=== PATIENT | male | born 1935 | race Caucasian/White ===

== ENCOUNTER 2016-11-07 05:43 | Inpatient (IN) | payer MEDICARE, BC ==
--- NOTE | 2016-10-30 19:12 | HP ---
PREOPERATIVE HISTORY AND PHYSICAL: DATE OF ADMISSION: This patient is scheduled for AA admission by Dr. Goldman on 11/07/16. DATE OF PREOPERATIVE HISTORY AND PHYSICAL EXAMINATION: , 10/25/16. ATTENDING SURGEON: Dr. Johann Goldman (dictated by Sierra Walsh NP). CHIEF COMPLAINT: Colon polyp. HISTORY OF PRESENT ILLNESS: The patient is an 81-year-old male with a history of type 2 diabetes, hypertension, and stage 3 chronic kidney disease, recently evaluated by Dr. Goldman with a new diagnosis of a tubulovillous adenoma of the colon. The patient had an episode of dizziness and fell at home at the end of July 2016, and was admitted to the intensive care unit at [facility] for 2 days. At that time, he reported a poor appetite and an unintentional weight loss of 10 pounds, and underwent CAT scan which showed an ascending colon lesion and he was referred to Gastroenterology. The patient underwent colonoscopy which revealed a 3- to 4-cm lesion at the hepatic flexure that was consistent with tubulovillous adenoma on pathology with no high-grade dysplasia. This lesion was tattooed, no other neoplastic lesions were identified, the patient did have evidence of diverticulosis. He did undergo colonoscopy in 2007, which was normal. The patient denies any bleeding per rectum. He reports diarrhea alternating with constipation. Dr. Goldman has reviewed the findings with the patient and has recommended laparoscopic colon polypectomy, possible partial colectomy, and has discussed the nature of the surgical procedure, the rationale for the procedure, the relevant risks and benefits, and today I reviewed the typical hospitalization and postoperative care and recovery. The patient has had a chance to ask questions and stated that he understands the information and is satisfied with the answers given to his questions. He will sign surgical consent on the day of surgery. PAST MEDICAL HISTORY: Significant for hypertension, type 2 diabetes, stage 3 chronic kidney disease related to diabetes, chronic generalized benign tremor. PAST SURGICAL HISTORY: Tonsillectomy at age 5. MEDICATIONS: 1. Felodipine ER 2.5 mg p.o. daily. 2. Lantus SoloStar 100 units/mL, inject 20 units subcutaneously daily at bedtime. 3. Hydrochlorothiazide 25 mg p.o. daily. 4. Altace 10 mg p.o. daily. 5. Metoprolol ER 100 mg p.o. daily. 6. Glyburide/metformin 2.5/500 mg 1 tablet b.i.d. 7. Lansoprazole 30 mg p.o. daily. ALLERGIES: No known drug allergies. FAMILY HISTORY: No known colon cancer. The patient's mother and brother had bladder cancer. The patient's father had a stroke. No known anesthesia complications, bleeding tendencies, or clotting disorders known. SOCIAL HISTORY: He is and his accompanies him to the visit today; he has never been a smoker. He states that he used to drink moderately but has not had any alcohol for several months. He denies the use of other substances. REVIEW OF SYSTEMS: Neurologic: He denies any current dizziness or syncope. Denies any history of seizures and does have a chronic generalized benign tremor. Cardiovascular: Denies any chest pain or shortness of breath. Denies any history of myocardial infarction or CVA; he is treated for hypertension by Dr. Dangelo; he was admitted to the intensive care unit, 08/08/16, at [facility] after he fell at home and struck the left side of his head at the temporal region; at that time, he was experiencing dizziness; he had a CT of the brain with no traumatic brain injury or acute intracranial process; his EKG did not show any ST changes and his troponin was 0; orthostatic hypotension was treated with IV fluids and the patient was discharged and has not had recurrence. He denies any history of deep vein thrombosis or pulmonary embolism. Respiratory: Denies any chronic shortness of breath. Denies any history of pneumonia. Denies any previous anesthesia complications. GI: In July 2016, he reported a poor appetite and an unintentional 10-pound weight loss and was worked up with a CAT scan of the abdomen and colonoscopy as described in history of present illness and found to have a tubulovillous adenoma at the hepatic flexure; he denies any current nausea or vomiting and states that his appetite is currently fair; he denies any blood per rectum and has occasional diarrhea alternating with constipation. Genitourinary: He has chronic stage 3 renal failure related to diabetes and his baseline creatinine is 1.6; he denies any dysuria. Musculoskeletal: He suffers from lower back pain. PHYSICAL EXAMINATION GENERAL SURVEY: The patient is an 81-year-old male, obese, well-developed, in no acute distress. VITAL SIGNS: Height 75 inches, weight 270 pounds, body mass index 33.7, blood pressure 140/88, pulse 76 and regular, respiratory rate 20, temperature 96. HEENT: Benign. NECK: Supple. No cervical lymphadenopathy. No carotid bruits bilaterally. LUNGS: Breath sounds bilaterally clear and equal. HEART: Regular rate and rhythm. No murmurs, rubs, or gallops appreciated. ABDOMEN: Protuberant, soft, and nontender. No obvious masses or ventral hernias but exam is limited by body habitus. No obvious organomegaly. GENITALIA AND RECTAL EXAM: Deferred. EXTREMITIES: Warm, no edema. Pulses are 2+ bilaterally. No skin ulcerations. NEUROLOGIC: Alert and oriented x3. Faint tremor in bilateral upper extremities. Motor strength is 5/5 bilaterally. Gait is steady. SKIN: Warm, dry, and intact. IMPRESSION: Tubulovillous adenoma, right colon. PLAN: AA admission to Dr. Goldman's service on 11/07/16, for laparoscopic colon polypectomy, possible partial colectomy. The patient was instructed in a bowel cleansing prep to be taken on the day before surgery consisting of clear liquids, Colyte laxative, neomycin, and Flagyl. SIERRA WALSH NP CC: Dr. Goldman, [facility]; Dr. Abhishek Dangelo* [id number]/[facility] #: [id number] [place]
[2016-11-07] MEDS ORDERED: Sodium Citrate/Citric Acid* 15 ML UDC PO ONE (06:00)
[2016-11-07] MEDS ORDERED: Buffered Lidocaine 1% SYRIN* 3 ML/SYR SYRINGE INTRADERM ONE (06:00)
[2016-11-07] MEDS ORDERED: Ertapenem* 1 GM in NS 0.9% 50 ML* 50 ML IVPB ONE (06:00)
[2016-11-07] MEDS ORDERED: Sodium Citrate/Citric Acid* 15 ML UDC ONE (06:02)
[2016-11-07] MEDS ORDERED: Heparin VIAL(*) 5000 UNITS/ML VIAL (FIVE THOUSAND) ONE (06:03)
[2016-11-07] MEDS ORDERED: Bupivacaine 0.25% EPI 200,000* 30 ML SDV ONE (07:03)
[2016-11-07] MEDS ORDERED: Propofol* 10 MG/ML 20 ML BTL IV PUSH ONE (07:36)
[2016-11-07] MEDS ORDERED: Rocuronium* 10 MG/ML VIAL ONE ×2 (07:36→09:14)
[2016-11-07] MEDS ORDERED: Lidocaine 2% PF* 5 ML VIAL ONE (07:36)
[2016-11-07] MEDS ORDERED: fentaNYL* 50 MCG/ML 2 ML VIAL (100 MCG VIAL) ONE ×4 (07:37→12:13)
[2016-11-07] MEDS ORDERED: Ondansetron INJ* 2 MG/ML VIAL IV PRN ×2 (08:42→12:39)
[2016-11-07] MEDS ORDERED: fentaNYL* 50 MCG/ML 2 ML VIAL (100 MCG VIAL) IV PRN (08:42)
[2016-11-07 11:54] LABS: Hematocrit 42 % (42-52); Hemoglobin 14.2 g/dl (14.0-18.0); Mean Corpuscular HGB Conc 34 g/dl (31-36); Mean Corpuscular Hemoglobin 33 pg (27-31); Mean Corpuscular Volume 96 fL (80-94); Mean Platelet Volume 9 um3 (7.4-10.4); Red Blood Count 4.35 10^6/ul (4.0-5.4); Red Cell Distribution Width 13 % (10.5-15); White Blood Count 10.2 10^3/ul (3.5-10.8)
[2016-11-07] MEDS ORDERED: Neostigmine Methylsulfate* 2 MG/2 ML SYRINGE ONE ×2 (12:20→12:21)
[2016-11-07] MEDS ORDERED: Glycopyrrolate IV* 0.2 MG/ML 1 ML VIAL ONE (12:21)
[2016-11-07] MEDS ORDERED: Bupivacaine 0.5% W/EPI SDV* 30 ML VIAL ONE (12:26)
--- NOTE | 2016-11-07 12:39 | SURGPN ---
Brief Operative Note - Surgery Procedures: Procedures Pre-OP Diagnoses: Colon polyp Post-op Diagnosis: same Procedure: Laparoscopic assisted Right hemicolectomy Surgeon: Jones Asst: Alba Anesthesia: GETA Dr Foster EBL: 500cc IVF: 3700cc LR Specimen: R colon Drains: Mack 200cc
[2016-11-07] MEDS ORDERED: Morphine PCA ADULT* 5 MG/ML 30 ML PCA SCH (13:00)
[2016-11-07] MEDS ORDERED: Morphine PCA ADULT* 5 MG/ML 30 ML ONE (13:21)
[2016-11-07] MEDS ORDERED: Metoprolol Tartrate IV* 1 MG/ML 5 ML VIAL IV PRN (13:23)
[2016-11-07] MEDS ORDERED: Ondansetron INJ* 2 MG/ML VIAL ONE (13:36)
[2016-11-07] MEDS ORDERED: Dextrose 50% Syringe 50 ML* 25 GM/50 ML SYRINGE IV PUSH PRN (15:26)
[2016-11-07] MEDS: Heparin VIAL(*) 5000 UNITS/ML VIAL (FIVE THOUSAND) SUBCUT SCH ×2 (15:27→21:24)
[2016-11-07] MEDS: Insulin LISPRO* 1 UNITS UNIT SUBCUT SCH (18:21)
[2016-11-07] MEDS: Metoprolol Tartrate IV* 1 MG/ML 5 ML VIAL IV SCH (18:22)
[2016-11-08] MEDS: Insulin LISPRO* 1 UNITS UNIT SUBCUT SCH ×5 (00:37→23:09)
[2016-11-08] MEDS: Metoprolol Tartrate IV* 1 MG/ML 5 ML VIAL IV SCH ×5 (00:37→23:09)
[2016-11-08] MEDS: Heparin VIAL(*) 5000 UNITS/ML VIAL (FIVE THOUSAND) SUBCUT SCH ×3 (05:14→22:55)
[2016-11-08 07:24] LABS: Hematocrit 41 % (42-52); Hemoglobin 13.8 g/dl (14.0-18.0); Mean Corpuscular HGB Conc 34 g/dl (31-36); Mean Corpuscular Hemoglobin 32 pg (27-31); Mean Corpuscular Volume 96 fL (80-94); Mean Platelet Volume 10 um3 (7.4-10.4); Red Blood Count 4.28 10^6/ul (4.0-5.4); Red Cell Distribution Width 13 % (10.5-15)
[2016-11-08 07:37] LABS: Albumin 3.2 g/dL (3.2-5.2); BUN/Creatinine Ratio 11.7 (8-20); Calcium 8.4 mg/dL (8.6-10.3); EGFR African American 56.2 (>60); EGFR Non-African American 43.7 (>60); Globulin 2.5 g/dL (2-4); Magnesium 1.8 mg/dL (1.9-2.7); Phosphorus 3.3 mg/dL (2.5-5.0); Potassium 4.2 mmol/L (3.5-5.0); Total Bilirubin 0.8 mg/dL (0.2-1.0); Total Protein 5.7 g/dL (6.4-8.9)
[2016-11-08] MEDS ORDERED: Magnesium Sulfate 2 GM IV* 2 GM/50 ML BAG IVPB ONE (07:55)
--- NOTE | 2016-11-08 12:47 | OP ---
CC: Abhishek Dangelo MD; [facility] OPERATIVE REPORT: DATE OF OPERATION: 11/07/16 DATE OF : 37 SURGEON: Johann Goldman MD MEMBER SERVICES COORDINATOR: Robbin Willis MD ANESTHESIOLOGIST: Dr. Foster. ANESTHESIA: General. PRE-OP DIAGNOSIS: Colon polyp. POST-OP DIAGNOSIS: Colon polyp. OPERATIVE PROCEDURE: Laparoscopic-assisted right hemicolectomy. ESTIMATED BLOOD LOSS: 500 cc. IV FLUIDS: 3700 cc of LR. SPECIMEN: Right colon. DRAINS: Mack catheter, 200 cc out. COUNTS: Lap pad count, instrument count correct at the end of the procedure. DESCRIPTION OF PROCEDURE: The patient was identified in the preoperative area, brought to the OR, p laced in the operating table in supine position. Preoperative antibiotics had been given. Sequenti al devices were placed on bilateral lower extremities. General anesthesia was induced. The Mack c atheter inserted and the patient's abdomen was clipped of hair and prepped and draped in standard turner rgical fashion and a time-out was performed. Folds of the umbilicus were elevated anteriorly and a Veress needle was inserted into the abdominal cavity, which was then allowed to insufflate to a pressure of 15 mmHg. The patient tolerated the in sufflation well. A 12-mm trocar was then inserted in the upper midline. A laparoscope was inserted through this. There was no evidence of injury from the trocar insertion or from the Veress needle. The Veress needle was removed. Then, a 5-mm trocar was placed at the site along with another 5-mm trocar at the suprapubic area. Attention was turned towards the omentum. This was reflected superiorly. There were adhesions to t he small bowel, these were taken down with sharp dissection as well as adhesions to the cecum, which were taken with electrocautery. This still did not allow us to fully visualize the ascending colon . There were additional adhesions of the ascending colon to the anterior abdominal wall. These wer e taken down with both sharp dissection and with blunt dissection. Once this was performed, we did identify blue dye along the ascending colon. Once the blue dye was realized, the next attempt was to mobilize the colon to evaluate. The terminal ileum was adhered to itself with multiple interloop adhesions. These were taken down w ith sharp dissection. Additionally, the appendix which appeared quite interacted was also sharply t aken out of the pelvic area. We took its blood supply to fully mobilize this. Next, the appendix mobilized medially. We were able to visualize that is the white line of Toldt an d this was taken with electrocautery and with LigaSure device up towards the hepatic flexure, retrac ting the colon medially. Again, the small bowel proved to be somewhat difficulty to be brought into the midline as it showed adhesions down into the pelvis. Some of these were taken down and again w ith scissors to release the adhesion, but overall it was difficult to visualize this portion of the small bowel. Next, we released the omentum from the transverse colon and extended this dissection with hepatic fl exure, releasing the hepatic flexure such that the colon could be mobilized medially at this side at well. The omentum was quite large and it was difficult to navigate this portion of the procedure. We were able to identify the C-loop of the duodenum and this was protected throughout, but at this point, a decision was made to convert to open and to bring the specimen out through the midline and see if w e can potentially perform a wedge resection polypectomy. The gas was released and were removed, and a midline incision connecting the subxiphoid incisi on and the periumbilical incision was made. This was deepened down through all the layers of the ab dominal cavity and omentum was eviscerated along with the transverse colon, but we were able to get most of the ascending colon through this incision, but it was held up by a small bowel loop. This incision was then extended inferiorly and we released the band that held the distal small bowel and the pelvic area. It did lead to a small serosal tear at this site but not a floor injury, but it did release the small bowel and allow as to now bring the distal small bowel and coalesce ascendi ng colon and right colon into our incision site. Previously identified inked area again was reviewed and a polyp approximately 2.5 cm was appreciated , but the decision was made to perform a formal colectomy due to both its size and also a significan t rent in the small bowel mesentery at the distal ileum. Due to this, we decided it was more jenna t to perform the formal right hemicolectomy and remove this portion of the small bowel. Points on the transverse colon were identified with good blood supply. The mesentery was taken off of this proximal transverse colon and extended towards the distal ileum. With the mesentery taken, this was done with LigaSure device. We then brought the small bowel and t ransverse colon in apposition to one another. Keeping the wound protected, colotomy and enterotomy were made and an 80 mm NIKKO stapler blue load wa s then fired to create anastomosis. A TA 90 blue stapling device was then utilized to cut both the common defect as well as the full transection of distal bowel. It was then passed off as specimen. The corners of the anastomosis were then dunked in with 3-0 silk sutures. The anastomosis was belcher nt. Another 3-0 silk suture was placed at the crotch of the staple line. Next, we attempted to close the mesenteric defect, which was large and would not really hold a stitc h very well and so therefore, we allowed this to be drop back into the abdomen. Next, the abdomen was copiously irrigated with warm saline. Hemostasis was achieved along the mesen greg. The bowel was intact without evidence of ischemia. Attention was turned towards the omentum. We noted that portion of the omentum that had been attach ed to the proximal transverse colon led to a distal large excess of this omentum and therefore was r emoved utilizing LigaSure device and there was an elongated portion. This was passed off and was in cluded with the specimen. With hemostasis achieved, the abdomen was then closed with interrupted #1 Polysorb sutures in a figu re-of-eight fashion starting inferiorly and then superiorly. The wound was then irrigated and skin edges re-approximated with skin buzz followed by sterile dressing and NG tube had been placed dur ing the time of the procedure. The liver was evaluated and was with normal contour and without lesio n. We did not open up the specimen on the back table and the patient was awoken up in the OR and tr ansferred to the PACU in stable condition. [id number]/[facility] #: [id number]
--- NOTE | 2016-11-08 16:53 | PN ---
Progress Note - Progress Note SOAP: Subjective: Pt seen and examined earlier today. Feeling ok. Positive abdo pain. No flatus. No nausea, positive burping. Objective: af vss UO good lungs clear b/l abdo: soft/ distended/ incisional tenderness. dressing intact no calf tenderness labs noted Assessment: POD1 r hemicolectomy Plan: d/c schwartz cont IVF FS with RISS OOB, Incentive spirometer DVT proph ice chips
[2016-11-08] MEDS ORDERED: Magnesium Sulfate 1 GM IV* 1 GM/100 ML BAG IV ONE (17:00)
--- NOTE | 2016-11-08 17:28 | PN ---
Subjective Date of Service: 11/08/16 Interval History: pt reports his pain is well controlled. no flatulence. No N/V/D. No fevers or chills. Denies SOB or cough. Overall feel comfortable. Objective Active Medications: Dextrose (D50w Syringe 50 Ml*) 12.5 gm IV PUSH .FOR FS < 60 - SS PRN PRN Reason: FS < 60 Heparin Sodium (Porcine) (Heparin Vial(*)) 5,000 units SUBCUT Q8HR [facility] Last Admin: 11/08/16 14:26 Dose: 5,000 units Lactated Ringer's (Lactated Ringers 1000 Ml Bag*) 1,000 mls @ 125 mls/hr IV .per rate [facility] Last Admin: 11/08/16 13:10 Dose: 125 mls/hr Morphine Sulfate (Morphine Hand Bunch Maker Adult* 5 Mg/Ml) 30 mls @ 0 mls/hr MONOGRAM MAKER .change Q24H LINO; Per Protocol PRN Reason: Protocol Last Admin: 11/07/16 13:38 Dose: 1 mls/hr Magnesium Sulfate/Dextrose (Magnesium Sulfate 1 Gm Iv*) 1 gm in 100 mls @ 200 mls/hr IV ONCE ONE Stop: 11/08/16 17:29 Insulin Human Lispro (Humalog*) 0 - 10 units SUBCUT Q6HR [facility] PRN Reason: Protocol Last Admin: 11/08/16 13:05 Dose: 1 units Metoprolol Tartrate (Lopressor Iv*) 5 mg IV Q6H [facility] Last Admin: 11/08/16 13:05 Dose: 5 mg Ondansetron HCl (Zofran Inj*) 4 mg IV Q4H PRN PRN Reason: NAUSEA/VOMITING Vital Signs 11/07/16 11/07/16 11/07/16 19:23 19:28 21:20 Temperature 98.2 F 97.6 F Pulse Rate 82 77 Respiratory 16 18 22 Rate Blood Pressure 140/74 140/66 (mmHg) O2 Sat by Pulse 98 98 98 Oximetry 11/07/16 11/08/16 11/08/16 23:54 03:47 08:08 Temperature 97.8 F 98.3 F 100.3 F Pulse Rate 86 83 80 Respiratory 18 18 18 Rate Blood Pressure 148/58 146/67 168/70 (mmHg) O2 Sat by Pulse 98 98 98 Oximetry 03/10/2611/08/16 11/08/16 08:30 12:47 16:00 Temperature 97.7 F Pulse Rate 82 Respiratory 18 18 Rate Blood Pressure 170/70 (mmHg) O2 Sat by Pulse 98 98 98 Oximetry 11/08/16 16:57 Temperature 98.2 F Pulse Rate 89 Respiratory 16 Rate Blood Pressure 132/64 (mmHg) O2 Sat by Pulse 93 Oximetry Oxygen Devices in Use Now: None Appearance: 81 yo male looks much younger than stated age - A+O x3 laying in bed in NAD. Eyes: No Scleral Icterus, PERRLA Ears/Nose/Mouth/Throat: NL Teeth, Lips, Gums Neck: NL Appearance and Movements; NL JVP Respiratory: Symmetrical Chest Expansion and Respiratory Effort, Clear to Auscultation Cardiovascular: NL Sounds; No Murmurs; No JVD, RRR, No Edema Abdominal: - - distended, obese, soft, dressing with small area of red drainage - BS noted Extremities: No Edema, No Clubbing, Cyanosis Neurological: Alert and Oriented x 3, NL Sensation, NL Gait, NL Muscle Strength and Tone Lines/Tubes/Other Access: Clean, Dry and Intact Peripheral IV Nutrition: Taking PO's Result Diagrams: 11/08/16 06:42 11/08/16 06:42 Assess/Plan/Problems-Billing Assessment: 81 yo male with PMH of DM type 2, HTN, CKD stage 3 with recent diagnoses of tubulovillous adenoma of the colon who underwent an elective laproscopic colon polypectomy and right hemicolectomy 11/07/16 - Patient Problems (1) S/P right hemicolectomy Comment: - POD #1 Disposition per surgery - Intraoperative EBL 500 ml - HH stable - No flatulence. BS noted - Pain management with Morphine MONOGRAM MAKER (2) Diabetes Comment: Controlled. Continue FSBG Q6hr with lispro SS (3) HTN (hypertension) Comment: - controlled. Continue Metoprolol IV LINO with hold parameters (4) Chronic kidney disease (CKD) Comment: - stage 3. creatinine at baseline. Renally dose medications. Continue to monitor (5) Electrolyte abnormality Comment: - replace magnesium, recheck in am (6) DVT prophylaxis Comment: HSQ (7) Full code status Status and Disposition: inpatient. Dispo per surgery. Hospital Medicine co-medical management.
--- NOTE | 2016-11-08 21:10 | CONS ---
CONSULTATION REPORT: DATE OF CONSULT: 11/07/16 PRIMARY CARE PROVIDER: Abhishek Dangelo MD. ATTENDING PHYSICIAN: Hermelinda Hays MD* (dictated by Lindy Laureano NP). PROVIDER REQUESTING CONSULT: Dr. Reji Goldman REASON FOR CONSULT: Medical management in a patient with hypertension, type 2 diabetes mellitus, stage 3 chronic kidney disease. HISTORY OF PRESENT ILLNESS: Mr. Roberson is an 81-year-old male with past medical history significant for type 2 diabetes, hypertension and stage 3 chronic kidney disease, who had recently been diagnosed with tubulovillous adenoma of the colon. The patient was initially evaluated in July 2006, when he had had some dizziness and a fall at home. He was admitted to [facility] at which time the patient had reported poor appetite and unintentional weight loss. He had a CT scan of his abdomen showing an ascending colon lesion and he was referred to Gastroenterology. The patient had a colonoscopy showing a 3 to 4-cm lesion at the hepatic flexure that was consistent with a tubulovillous adenoma. The patient after being referred to Dr. Goldman, it was recommended that the patient undergo a laparoscopic colon polypectomy with a possible partial colectomy. The patient presented to the hospital for a laparoscopic colon polypectomy with Dr. Goldman on 11/07/16. Postoperatively, the patient is doing well. The patient states that leading up to his surgery, he has been in his usual state of health. The patient denies any fever, chills, chest pain, shortness of breath. Hospitalists were asked to assist with the management of this patient during his postoperative period. PAST MEDICAL HISTORY: 1. Hypertension. 2. Diabetes mellitus type 2. 3. Chronic kidney disease stage 3. 4. Generalized benign tumor. 5. GERD. PAST SURGICAL HISTORY: Status post tonsillectomy at age 5. HOME MEDICATIONS: Include: 1. Lantus 20 units subcutaneous daily. 2. Hydrochlorothiazide 25 mg oral daily. 3. Altace 10 mg oral every evening. 4. Metoprolol ER 100 mg oral daily. 5. Glyburide/metformin 2.5/500 one tablet oral twice daily. ALLERGIES: No known drug allergies. FAMILY HISTORY: The patient denies any family history of coronary artery disease or diabetes mellitus. The patient's mother and brother had a history of bladder issues. The patient is unsure if this was bladder cancer or not. SOCIAL HISTORY: The patient is . He denies tobacco or recreational drug use. He is a former heavy drinker and now currently occasionally drinks 1 to 2 alcoholic beverages on the weekends. The patient lives with his , Lisandra Roberson, who will be his surrogate decision maker in the event that he is unable to make decisions for himself. The patient is retired from the post office. REVIEW OF SYSTEMS: I performed a 14-point review of systems. All the pertinent positives and negatives are mentioned in the history of present illness. The remaining review of systems are negative. PHYSICAL EXAM: Vital Signs: Temperature 97.3, heart rate 67, respiratory rate 16, oxygen saturation 100% on 2 L via nasal cannula, blood pressure 137/65. General Appearance: The patient is alert, appears to be in no acute distress. HEENT: Normocephalic, atraumatic. Pupils are equal and reactive to light. Extraocular eye movements are intact. Neck: Supple. Cardiovascular: Regular rate and rhythm. S1 and S2 are present. There are no murmurs, rubs, or gallops heard. Respiratory: There is no accessory muscle use and the lungs are clear to auscultation bilaterally. Abdomen: Soft, large and tender near the incision site. There are a few bowel sounds present. Extremities: There is no lower extremity edema. DP and PT pulses are 2+ and symmetric. Musculoskeletal : There is no clubbing or cyanosis noted. The patient exhibits good strength in all extremities. Skin: The patient has a dressing to his abdomen, it is clean, dry, and intact. Neurological: Cranial nerves II through XII are grossly intact. The patient moves all extremities. Psychological: The patient is calm and cooperative. DIAGNOSTIC STUDIES/LAB DATA: Labs from today show a white blood cell count of 10.3, hemoglobin 14.2, hematocrit 33, and platelet count 171. A preop EKG from 10/25/16 showed a sinus rhythm with a right bundle branch block and a rate of 61. Previous EKG from 08/08/16, shows a sinus bradycardia with a rate of 57. The patient was in normal sinus rhythm with a rate of 80s in PACU. IMPRESSION: Mr. Roberson is an 81-year-old male with past medical history significant for diabetes mellitus, chronic kidney disease stage 3, and hypertension who presented to the hospital for a laparoscopic colon polypectomy with Dr. Goldman and is now status post a laparoscopic right hemicolectomy. Hospitalists were asked to assist with the comanagement of this patient during his hospitalization. ASSESSMENT: 1. Status post laparoscopic right hemicolectomy. The patient will have an NG tube managed per General Surgery. The patient is receiving morphine via a DIRECTOR OF LEARNING for pain control. Further management will be per General Surgery. 2. Diabetes mellitus. We will hold the patient's oral medications. He will have fingersticks q.6 hours and a lispro sliding scale. 3. Chronic Kidney Disease, stage 3. Pt's creatinine appears to be at baseline. Renally dose medications and monitor renal function. 4. Hypertension. For now, we will hold the patient's oral medications and place him on metoprolol IV q.6 hours with plans to transition him back to his oral medications once he is taking oral intake. 5. Fluids, electrolytes and nutrition. N.p.o. Lactated Ringer's at 125 mL an hour. 6. Code status. Full code. 7. DVT prophylaxis. The patient will be on subcu heparin and SCDs per General Surgery. 8. Disposition. Inpatient. Disposition per General Surgery. TIME SPENT: Time for this consultation was 60 minutes and 35 minutes was spent with the patient discussing the medications, past medical history, and events leading to his arrival today and performing a physical examination. The case has been reviewed with the attending, Dr. Hays, who agrees with the plan of care. Reviewed by JAMIE DAHL 11/08/16 2141 CC: Abhishek Dangelo MD; Johann Goldman MD* [id number]/[facility] #: [id number] [facility]
[2016-11-09] MEDS ORDERED: hydrALAZINE IV* 20 MG/ML VIAL IV ONE (04:08)
[2016-11-09] MEDS ORDERED: hydrALAZINE IV* 20 MG/ML VIAL ONE (04:12)
[2016-11-09] MEDS: Metoprolol Tartrate IV* 1 MG/ML 5 ML VIAL IV SCH ×3 (05:27→18:19)
[2016-11-09] MEDS: Heparin VIAL(*) 5000 UNITS/ML VIAL (FIVE THOUSAND) SUBCUT SCH ×3 (05:27→21:54)
[2016-11-09] MEDS: Insulin LISPRO* 1 UNITS UNIT SUBCUT SCH ×4 (05:28→20:50)
[2016-11-09 07:15] LABS: Hematocrit 37 % (42-52); Hemoglobin 12.6 g/dl (14.0-18.0); Mean Corpuscular HGB Conc 34 g/dl (31-36); Mean Corpuscular Hemoglobin 33 pg (27-31); Mean Corpuscular Volume 96 fL (80-94); Mean Platelet Volume 9 um3 (7.4-10.4); Red Blood Count 3.81 10^6/ul (4.0-5.4); Red Cell Distribution Width 13 % (10.5-15); White Blood Count 7.7 10^3/ul (3.5-10.8)
[2016-11-09 07:34] LABS: BUN/Creatinine Ratio 9.9 (8-20); Calcium 8.5 mg/dL (8.6-10.3); EGFR African American 62.2 (>60); EGFR Non-African American 48.4 (>60); Magnesium 1.9 mg/dL (1.9-2.7)
--- NOTE | 2016-11-09 09:14 | PN ---
Subjective Date of Service: 11/09/16 Interval History: pt reports "i feel pretty good". Reports abdominal pain but well controlled and feels better than yesterday. No flatulence or BM. No N/V. No fever or chills Objective Active Medications: Dextrose (D50w Syringe 50 Ml*) 12.5 gm IV PUSH .FOR FS < 60 - SS PRN PRN Reason: FS < 60 Heparin Sodium (Porcine) (Heparin Vial(*)) 5,000 units SUBCUT Q8HR [facility] Last Admin: 11/09/16 05:27 Dose: 5,000 units Lactated Ringer's (Lactated Ringers 1000 Ml Bag*) 1,000 mls @ 125 mls/hr IV .per rate [facility] Last Admin: 11/09/16 03:45 Dose: 125 mls/hr Morphine Sulfate (Morphine Bobbin Winder Adult* 5 Mg/Ml) 30 mls @ 0 mls/hr HYDROELECTRIC MACHINERY MECHANIC HELPER .change Q24H LINO; Per Protocol PRN Reason: Protocol Last Admin: 11/07/16 13:38 Dose: 1 mls/hr Insulin Human Lispro (Humalog*) 0 - 10 units SUBCUT Q6HR [facility]O PRN Reason: Protocol Last Admin: 11/09/16 05:28 Dose: Not Given Metoprolol Tartrate (Lopressor Iv*) 5 mg IV Q6H [facility] Last Admin: 11/09/16 05:27 Dose: 5 mg Ondansetron HCl (Zofran Inj*) 4 mg IV Q4H PRN PRN Reason: NAUSEA/VOMITING Vital Signs 11/08/16 11/08/16 11/08/16 12:47 15:32 16:00 Temperature 97.7 F 98.2 F Pulse Rate 82 89 Respiratory 18 16 Rate Blood Pressure 170/70 132/64 (mmHg) O2 Sat by Pulse 98 93 98 Oximetry 11/08/16 11/08/16 11/08/16 16:57 17:56 19:15 Temperature 98.2 F 98.2 F Pulse Rate 89 93 82 Respiratory 16 16 Rate Blood Pressure 132/64 171/70 152/67 (mmHg) O2 Sat by Pulse 93 96 Oximetry 11/08/16 11/08/16 11/09/16 20:01 23:00 03:40 Temperature 97.9 F 98.1 F Pulse Rate 88 93 Respiratory 18 18 16 Rate Blood Pressure 182/67 174/66 (mmHg) O2 Sat by Pulse 96 98 98 Oximetry 11/09/16 11/09/16 11/09/16 05:00 05:48 07:00 Temperature Pulse Rate Respiratory 24 Rate Blood Pressure 172/66 156/63 (mmHg) O2 Sat by Pulse 96 Oximetry 11/09/16 11/09/16 07:31 08:42 Temperature 98.1 F Pulse Rate 82 Respiratory 20 Rate Blood Pressure 171/69 (mmHg) O2 Sat by Pulse 98 96 Oximetry Oxygen Devices in Use Now: None Appearance: elderly male sitting up in bed in NAD. A+O x3 Eyes: No Scleral Icterus, PERRLA Ears/Nose/Mouth/Throat: NL Teeth, Lips, Gums, Mucous Membranes Moist Neck: NL Appearance and Movements; NL JVP Respiratory: Symmetrical Chest Expansion and Respiratory Effort, Clear to Auscultation Cardiovascular: NL Sounds; No Murmurs; No JVD, RRR, No Edema Abdominal: - - obese, distended, soft, mild tenderness around laproscopic incision areas - noted BS x 4. small area of dried blood on dressing. Extremities: No Edema, No Clubbing, Cyanosis Skin: - - warm, pink dry Neurological: Alert and Oriented x 3, NL Muscle Strength and Tone Lines/Tubes/Other Access: Clean, Dry and Intact Peripheral IV Nutrition: Taking PO's Result Diagrams: 11/09/16 06:26 11/09/16 06:24 Assess/Plan/Problems-Billing Assessment: 81 yo male with PMH of DM type 2, HTN, CKD stage 3 with recent diagnoses of tubulovillous adenoma of the colon who underwent an elective laproscopic colon polypectomy and right hemicolectomy 11/07/16 - Patient Problems (1) S/P right hemicolectomy Comment: - POD #2 Disposition per surgery - Intraoperative EBL 500 ml - HH stable - No flatulence. BS noted - Pain management, well controlled with Morphine HYDROELECTRIC MACHINERY MECHANIC HELPER, tolerating well w/o any sedation - Decrease IVFs to 100 ml/hr - Encourage IS and ambulation (2) Diabetes Comment: Controlled. Continue FSBG Q6hr with lispro SS (3) HTN (hypertension) Comment: - controlled. Continue Metoprolol IV LINO with hold parameters - hydralyzine prn for SBP > 170 (4) Chronic kidney disease (CKD) Comment: - stage 3. creatinine at baseline. Renally dose medications. Continue to monitor (5) Electrolyte abnormality Comment: - resolved. recheck in am (6) DVT prophylaxis Comment: HSQ (7) Full code status Status and Disposition: inpatient. Dispo per surgery. Hospital Medicine co-medical management.
[2016-11-09] MEDS: hydrALAZINE IV* 20 MG/ML VIAL IV SLOW PU PRN ×2 (10:03→23:38)
--- NOTE | 2016-11-09 10:07 | PN ---
Progress Note - Progress Note SOAP: Subjective: Pt seen and examined today. Feeling better. Less abdo pain. No flatus or BM. No nausea. Positive appetite. Objective: af vss; O2sat 90 on RA lungs clear b/l abdo: soft/ distended/ incisional tenderness. dressing removed. MInimal dull erythema at midportion hypoactive BS no calf tenderness labs noted Pathology reviewed with pt Assessment: POD2 R hemicolectomy Plan: change IVF FS with RISS OOB, Incentive spirometer DVT proph clear diet
[2016-11-09] MEDS ORDERED: Insulin LISPRO* 1 UNITS UNIT SUBCUT SCH ×2 (11:30→14:00)
[2016-11-10] MEDS: Metoprolol Tartrate IV* 1 MG/ML 5 ML VIAL IV SCH ×3 (00:11→12:31)
[2016-11-10] MEDS ORDERED: amLODIPine TAB* 5 MG ONE (02:19)
[2016-11-10] MEDS: amLODIPine TAB* 5 MG PO SCH ×2 (02:23→08:03)
[2016-11-10] MEDS ORDERED: Furosemide IV* 10 MG/ML 10 ML VIAL (100 MG) IV ONE (04:03)
[2016-11-10] MEDS ORDERED: NS 0.9% 1000 ML* 1,000 ML IV SCH (04:15)
[2016-11-10] MEDS ORDERED: Pantoprazole IV* 40 MG IV ONE (05:00)
[2016-11-10] MEDS ORDERED: Furosemide IV* 10 MG/ML 2 ML VIAL (20 MG) IV ONE (05:00)
[2016-11-10] MEDS: Heparin VIAL(*) 5000 UNITS/ML VIAL (FIVE THOUSAND) SUBCUT SCH ×3 (05:35→21:46)
[2016-11-10 07:13] LABS: Hematocrit 41 % (42-52); Hemoglobin 14.1 g/dl (14.0-18.0); Mean Corpuscular HGB Conc 34 g/dl (31-36); Mean Corpuscular Hemoglobin 33 pg (27-31); Mean Corpuscular Volume 96 fL (80-94); Mean Platelet Volume 9 um3 (7.4-10.4); Red Cell Distribution Width 13 % (10.5-15); White Blood Count 8.4 10^3/ul (3.5-10.8)
[2016-11-10 07:30] LABS: BUN/Creatinine Ratio 9.5 (8-20); Calcium 8.7 mg/dL (8.6-10.3); EGFR African American 64.3 (>60); Magnesium 1.8 mg/dL (1.9-2.7); Phosphorus 3.1 mg/dL (2.5-5.0); Potassium 4.2 mmol/L (3.5-5.0)
[2016-11-10] MEDS ORDERED: Morphine INJ* 2 MG/ML 1 ML SYRINGE IV PRN (08:10)
--- NOTE | 2016-11-10 08:10 | PN ---
Progress Note - Progress Note SOAP: Subjective: Pt seen and examined today. Overnight events noted. Feeling bloated, but not nauseous. Less abdo pain, amd continues walking. No flatus, but pos BM this am. Thirsty. Received Lasix overnight Objective: af vss; O2sat 90 on RA lungs clear b/l abdo: soft/ distended/ incisional tenderness. minimal erythema unchanged. normoactive BS no calf tenderness labs noted Assessment: POD3 R hemicolectomy, awaiting bowel function Plan: change IVF OOB, Incentive spirometer DVT proph clear diet d/c warehouse consultant
[2016-11-10] MEDS ORDERED: oxyCODONE/Acetamin 5/325 MG* TAB PO PRN (08:11)
[2016-11-10] MEDS ORDERED: Ramipril CAP* 10 MG PO SCH (09:00)
[2016-11-10] MEDS ORDERED: D5W 1/2 NS 1000 ML BAG* 1,000 ML IV SCH (09:00)
[2016-11-10] MEDS: Metoprolol Succinate XL TAB* 100 MG PO SCH (09:13)
[2016-11-10] MEDS: Hydrochlorothiazide TAB* 25 MG PO SCH (09:17)
[2016-11-10] MEDS: Insulin LISPRO* 1 UNITS UNIT SUBCUT SCH ×4 (09:17→21:46)
--- NOTE | 2016-11-10 16:40 | PN ---
Subjective Date of Service: 11/10/16 Interval History: Patient seen and examined at bedside at 1230. He reports recently being up OOB and walking. He denies CP, SOB, n/v. He reports adequate pain control for abdominal pain. Denies leg pain, fever/chills. No acute concerns. Family History: Unchanged from Admission Social History: Unchanged from Admission Past Medical History: Unchanged from Admission Objective Active Medications: Amlodipine Besylate (Norvasc Tab*) 5 mg PO DAILY [facility] Last Admin: 11/10/16 08:03 Dose: Not Given Dextrose (D50w Syringe 50 Ml*) 12.5 gm IV PUSH .FOR FS < 60 - SS PRN PRN Reason: FS < 60 Heparin Sodium (Porcine) (Heparin Vial(*)) 5,000 units SUBCUT Q8HR [facility] Last Admin: 11/10/16 14:21 Dose: 5,000 units Hydralazine HCl (Apresoline Iv*) 5 mg IV SLOW PU Q6H PRN PRN Reason: BLOOD PRESSURE Last Admin: 11/09/16 23:38 Dose: 5 mg Hydrochlorothiazide (Hydrodiuril Tab*) 25 mg PO QAM [facility] Last Admin: 11/10/16 09:17 Dose: 25 mg Dextrose/Sodium Chloride (D5w 1/2 Ns 1000 Ml Bag*) 1,000 mls @ 50 mls/hr IV PER RATE [facility] Last Admin: 11/10/16 11:37 Dose: 50 mls/hr Insulin Human Lispro (Humalog*) 0 - 10 units SUBCUT ACHS [facility] PRN Reason: Protocol Last Admin: 11/10/16 12:29 Dose: Not Given Metoprolol Succinate (Toprol Xl Tab*) 100 mg PO QAM [facility] Last Admin: 11/10/16 09:13 Dose: 100 mg Metoprolol Tartrate (Lopressor Iv*) 5 mg IV Q6H [facility] Last Admin: 11/10/16 12:31 Dose: 5 mg Morphine Sulfate (Morphine Inj (Syringe)*) 2 mg IV Q2H PRN PRN Reason: PAIN Ondansetron HCl (Zofran Inj*) 4 mg IV Q4H PRN PRN Reason: NAUSEA/VOMITING Last Admin: 11/10/16 05:04 Dose: 4 mg Oxycodone/Acetaminophen (Percocet 5/325 Tab*) 1 tab PO Q4H PRN PRN Reason: PAIN Ramipril (Altace Cap*) 10 mg PO QAM [facility] Last Admin: 11/10/16 09:18 Dose: 10 mg Vital Signs 11/09/16 11/09/16 11/09/16 18:00 18:10 18:23 Temperature Pulse Rate 95 95 Respiratory 18 18 Rate Blood Pressure 165/62 165/62 (mmHg) O2 Sat by Pulse 93 95 94 Oximetry 11/09/16 11/09/16 11/09/16 19:08 19:09 19:19 Temperature Pulse Rate Respiratory 17 17 17 Rate Blood Pressure (mmHg) O2 Sat by Pulse Oximetry 11/09/16 11/09/16 11/09/16 19:36 20:00 22:00 Temperature 99.0 F Pulse Rate 77 Respiratory 20 17 17 Rate Blood Pressure 164/73 (mmHg) O2 Sat by Pulse 98 94 93 Oximetry 11/09/16 11/10/16 11/10/16 23:30 00:00 00:05 Temperature 97.5 F Pulse Rate 91 92 Respiratory 16 16 Rate Blood Pressure 193/80 191/74 (mmHg) O2 Sat by Pulse 99 93 Oximetry 11/10/16 11/10/16 11/10/16 01:59 02:00 02:08 Temperature Pulse Rate 88 Respiratory 17 Rate Blood Pressure 184/170 182/79 (mmHg) O2 Sat by Pulse 94 Oximetry 11/10/16 11/10/16 11/10/16 03:54 04:00 04:47 Temperature 98.7 F Pulse Rate 90 Respiratory 18 18 Rate Blood Pressure 192/80 (mmHg) O2 Sat by Pulse 97 96 Oximetry 11/10/16 11/10/16 11/10/16 05:22 05:27 06:00 Temperature Pulse Rate 89 Respiratory 17 Rate Blood Pressure 160/72 (mmHg) O2 Sat by Pulse 96 93 Oximetry 11/10/16 11/10/16 11/10/16 07:29 11:43 15:09 Temperature 97.5 F 97.8 F 97.5 F Pulse Rate 91 84 81 Respiratory 20 18 16 Rate Blood Pressure 155/74 118/68 115/53 (mmHg) O2 Sat by Pulse 98 98 91 Oximetry Oxygen Devices in Use Now: None Appearance: Older male patient, sitting up in bed, in NAD Eyes: PERRLA Ears/Nose/Mouth/Throat: Clear Oropharnyx, Mucous Membranes Moist Neck: NL Appearance and Movements; NL JVP Respiratory: Symmetrical Chest Expansion and Respiratory Effort, Clear to Auscultation Cardiovascular: NL Sounds; No Murmurs; No JVD, RRR Abdominal: - - protuberant, distended, soft, midline incision with buzz - well approximated, small incision to LLQ with 2 buzz. BS x 4 Extremities: No Edema, No Clubbing, Cyanosis Skin: No Rash or Ulcers Neurological: Alert and Oriented x 3, NL Muscle Strength and Tone Lines/Tubes/Other Access: Clean, Dry and Intact Peripheral IV Nutrition: Taking PO's - sips of clears Result Diagrams: 11/10/16 07:01 11/10/16 07:01 Assess/Plan/Problems-Billing Assessment: 81 yo male with PMH of DM type 2, HTN, CKD stage 3 with recent diagnoses of tubulovillous adenoma of the colon who underwent an elective laproscopic colon polypectomy and right hemicolectomy 11/07/16. - Patient Problems (1) S/P right hemicolectomy Code(s): Z90.49 - ACQUIRED ABSENCE OF OTHER SPECIFIED PARTS OF DIGESTIVE TRACT Comment: POD #3 Disposition per surgery Intraoperative EBL 500 ml. HH stable. No flatulence. BS noted. Pain management, well controlled with morphine. MANAGER GAME discontinued, now on PRN dosing. Encourage IS and ambulation (2) Diabetes Code(s): E11.9 - TYPE 2 DIABETES MELLITUS WITHOUT COMPLICATIONS Comment: Controlled. Continue FSBG ACHS with lispro SS (3) HTN (hypertension) Code(s): I10 - ESSENTIAL (PRIMARY) HYPERTENSION Comment: Controlled. Continue metoprolol and ramipril. Continue hydralazine prn for SBP > 170 (4) Chronic kidney disease (CKD) Code(s): N18.9 - CHRONIC KIDNEY DISEASE, UNSPECIFIED Comment: Stage 3. Creatinine at baseline. Renally dose medications. Continue to monitor. (5) DVT prophylaxis Code(s): REG3971 - Comment: SQ heparin (6) Full code status Code(s): Z78.9 - OTHER SPECIFIED HEALTH STATUS Status and Disposition: Inpatient. Dispo per surgery. Hospital Medicine co-medical management.
[2016-11-10] MEDS ORDERED: Magnesium Sulfate 2 GM IV* 2 GM/50 ML BAG IVPB ONE (16:46)
[2016-11-10] MEDS ORDERED: Magnesium Sulfate 2 GM IV* 2 GM/50 ML BAG ONE (16:58)
[2016-11-10] MEDS: D5W 1/2 NS 1000 ML BAG* 1,000 ML IV SCH (22:55)
[2016-11-10] MEDS ORDERED: Diltiazem TAB* 30 MG ONE (23:29)
[2016-11-10] MEDS: Diltiazem TAB* 30 MG PO SCH (23:32)
[2016-11-10] MEDS: Aspirin TAB* 325 MG PO SCH (23:56)
[2016-11-11] MEDS: D5W 1/2 NS 1000 ML BAG* 1,000 ML IV SCH ×2 (04:53→17:59)
[2016-11-11] MEDS: Heparin VIAL(*) 5000 UNITS/ML VIAL (FIVE THOUSAND) SUBCUT SCH ×3 (05:37→20:59)
[2016-11-11] MEDS: Diltiazem TAB* 30 MG PO SCH ×3 (05:37→13:23)
[2016-11-11 06:52] LABS: Hematocrit 39 % (42-52); Hemoglobin 13.4 g/dl (14.0-18.0); Mean Corpuscular HGB Conc 34 g/dl (31-36); Mean Corpuscular Hemoglobin 33 pg (27-31); Mean Corpuscular Volume 96 fL (80-94); Mean Platelet Volume 8 um3 (7.4-10.4); Red Blood Count 4.08 10^6/ul (4.0-5.4); Red Cell Distribution Width 13 % (10.5-15); White Blood Count 7.4 10^3/ul (3.5-10.8)
[2016-11-11 07:04] LABS: BUN/Creatinine Ratio 9.7 (8-20); Calcium 8.3 mg/dL (8.6-10.3); EGFR African American 45.5 (>60); EGFR Non-African American 35.4 (>60); Potassium 3.9 mmol/L (3.5-5.0)
[2016-11-11] MEDS: Hydrochlorothiazide TAB* 25 MG PO SCH (08:43)
[2016-11-11] MEDS: Insulin LISPRO* 1 UNITS UNIT SUBCUT SCH ×4 (09:01→20:59)
[2016-11-11] MEDS: Metoprolol Succinate XL TAB* 100 MG PO SCH (09:01)
[2016-11-11] MEDS: Aspirin TAB* 325 MG PO SCH (09:01)
--- NOTE | 2016-11-11 09:01 | PN ---
Subjective Date of Service: 11/11/16 Interval History: Patient seen and examined at bedside. He is sleeping but arouses to verbal stimuli. He reports that he is tolerating clear liquids. Denies fever/chills, CP , SOB, abd pain, n/v. Patient went into atrial fib last evening; he denies any prior knowledge of this condition. Patient was asymptomatic through the event and started on diltiazem. Patient also noted that he is not urinating as much here; he states he usually has to go every 2-3 hours at home. Family History: Unchanged from Admission Social History: Unchanged from Admission Past Medical History: Unchanged from Admission Objective Active Medications: Aspirin (Aspirin Tab*) 325 mg PO DAILY [facility] Last Admin: 11/10/16 23:56 Dose: 325 mg Dextrose (D50w Syringe 50 Ml*) 12.5 gm IV PUSH .FOR FS < 60 - SS PRN PRN Reason: FS < 60 Diltiazem HCl (Cardizem Tab*) 30 mg PO Q6HR [facility] Last Admin: 11/11/16 05:37 Dose: 30 mg Heparin Sodium (Porcine) (Heparin Vial(*)) 5,000 units SUBCUT Q8HR [facility] Last Admin: 11/11/16 05:37 Dose: 5,000 units Hydralazine HCl (Apresoline Iv*) 5 mg IV SLOW PU Q6H PRN PRN Reason: BLOOD PRESSURE Last Admin: 11/09/16 23:38 Dose: 5 mg Hydrochlorothiazide (Hydrodiuril Tab*) 25 mg PO QAM [facility] Last Admin: 11/11/16 08:43 Dose: Not Given Dextrose/Sodium Chloride (D5w 1/2 Ns 1000 Ml Bag*) 1,000 mls @ 100 mls/hr IV PER RATE [facility] Last Admin: 11/11/16 04:53 Dose: 100 mls/hr Insulin Human Lispro (Humalog*) 0 - 10 units SUBCUT ACHS [facility] PRN Reason: Protocol Last Admin: 11/10/16 21:46 Dose: 1 unit Metoprolol Succinate (Toprol Xl Tab*) 100 mg PO QAM [facility] Last Admin: 11/10/16 09:13 Dose: 100 mg Morphine Sulfate (Morphine Inj (Syringe)*) 2 mg IV Q2H PRN PRN Reason: PAIN Ondansetron HCl (Zofran Inj*) 4 mg IV Q4H PRN PRN Reason: NAUSEA/VOMITING Last Admin: 11/10/16 05:04 Dose: 4 mg Oxycodone/Acetaminophen (Percocet 5/325 Tab*) 1 tab PO Q4H PRN PRN Reason: PAIN Last Admin: 11/10/16 23:56 Dose: 1 tab Ramipril (Altace Cap*) 10 mg PO QPM ON [facility] OF [facility] Vital Signs 11/10/16 11/10/16 11/10/16 11:43 15:09 19:26 Temperature 97.8 F 97.5 F Pulse Rate 84 81 Respiratory 18 16 20 Rate Blood Pressure 118/68 115/53 (mmHg) O2 Sat by Pulse 98 91 Oximetry 11/10/16 11/10/16 11/10/16 19:44 20:14 22:37 Temperature 97.2 F 97.3 F Pulse Rate 135 72 120 Respiratory 21 18 Rate Blood Pressure 131/62 137/63 (mmHg) O2 Sat by Pulse 95 97 Oximetry 11/10/16 11/11/16 11/11/16 23:56 01:11 01:53 Temperature Pulse Rate 80 Respiratory 18 18 18 Rate Blood Pressure 138/67 (mmHg) O2 Sat by Pulse 97 Oximetry 11/11/16 11/11/16 11/11/16 03:20 05:42 07:12 Temperature 98.1 F Pulse Rate 107 97 Respiratory 18 18 Rate Blood Pressure 143/61 (mmHg) O2 Sat by Pulse 97 99 97 Oximetry 11/11/16 07:23 Temperature 97.3 F Pulse Rate 89 Respiratory 16 Rate Blood Pressure 112/55 (mmHg) O2 Sat by Pulse 94 Oximetry Oxygen Devices in Use Now: None Appearance: Older male patient, sitting up in bed, in NAD Eyes: PERRLA Ears/Nose/Mouth/Throat: Clear Oropharnyx, Mucous Membranes Moist Neck: NL Appearance and Movements; NL JVP Respiratory: Symmetrical Chest Expansion and Respiratory Effort, Clear to Auscultation Cardiovascular: NL Sounds; No Murmurs; No JVD, RRR Abdominal: - - protuberant, distended, soft, BS x 4. buzz to midline incision and small lap site. Extremities: No Edema, No Clubbing, Cyanosis Skin: No Rash or Ulcers Neurological: Alert and Oriented x 3 Lines/Tubes/Other Access: Clean, Dry and Intact Peripheral IV Nutrition: Taking PO's - clears Result Diagrams: 11/11/16 06:44 11/11/16 06:44 Assess/Plan/Problems-Billing Assessment: 81 yo male with PMH of DM type 2, HTN, CKD stage 3 with recent diagnoses of tubulovillous adenoma of the colon who underwent an elective laproscopic colon polypectomy and right hemicolectomy 11/07/16. - Patient Problems (1) Atrial fibrillation Code(s): I48.91 - UNSPECIFIED ATRIAL FIBRILLATION Comment: Patient noted to be in atrial fibrillation overnight, now appears to be in SR. Will transfer to telemetry for further monitoring, continue diltiazem and metoprolol. Unclear if this is transient or if patient has chronically been in and out of atrial fib. Will require anticoagulation (if okay with surgery) if patient noted to have recurrent afib. If no further episodes, patient can follow as an outpatient with PCP and have outpatient cardiology referral. Obtain echocardiogram. (2) S/P right hemicolectomy Code(s): Z90.49 - ACQUIRED ABSENCE OF OTHER SPECIFIED PARTS OF DIGESTIVE TRACT Comment: POD #4 Disposition per surgery Intraoperative EBL 500 ml. HH stable. No flatulence. BS noted. Patient reports BM x 2. Pain management, well controlled with morphine. Encourage IS and ambulation (3) Diabetes Code(s): E11.9 - TYPE 2 DIABETES MELLITUS WITHOUT COMPLICATIONS Comment: Controlled. Continue FSBG ACHS with lispro SS (4) HTN (hypertension) Code(s): I10 - ESSENTIAL (PRIMARY) HYPERTENSION Comment: Normotensive. Continue metoprolol and ramipril with hold parameters Now also on diltiazem for episode of atrial fib last evening. Hold HCTZ, as patient appears to be somewhat dry. Continue hydralazine prn for SBP > 170 (5) Chronic kidney disease (CKD) Code(s): N18.9 - CHRONIC KIDNEY DISEASE, UNSPECIFIED Comment: Stage 3. Creatinine mildly elevated. Suspect patient is dry. Continue IVF, hold HCTZ today. Renally dose medications. Continue to monitor. (6) DVT prophylaxis Code(s): [id number] - Comment: SQ heparin (7) Full code status Code(s): Z78.9 - OTHER SPECIFIED HEALTH STATUS Status and Disposition: Inpatient. Dispo per surgery. Transfer to telemetry for further monitoring of afib. Hospital Medicine co-medical management.
[2016-11-11] MEDS ORDERED: NS 0.9% 500 ML BAG* 500 ML IV SCH (12:00)
--- NOTE | 2016-11-11 12:08 | ECHO ---
Patient: MARYBEL MARIN [facility] Rec#: [id number] : 1935 Date: 11/11/2016 Age: 81y Weight: kg / NaN lbs Sex: M Room#: 448 Admit Date#: 11/07/2016 Type: Inpatient Referring: Rona Camacho Reading: Yuval Hopkins MD Submarine Worker: Ginger Marie RDCS CC: Abhishek Dangelo MD Transthoracic Echocardiogram Indication: A-fib BP: 112/55 HR: 86 Rhythm: NSR Findings History: S/P right hemicolectomy 11/07/2016,DM,HTN,CKD stageIII,GERD. Technical Comments: The study is technically limited due to patient body habitus. Completed at 1117. Left Ventricle: The left ventricular chamber size is normal. Mild concentric left ventricular hypertrophy is observed. Global left ventricular wall motion and contractility are within normal limits. There is normal left ventricular systolic function. The estimated ejection fraction is 55-60%. The assessment of diastolic function is non-diagnostic. Left Atrium: The left atrial chamber size is normal. Right Ventricle: The right ventricular cavity size is normal. The right ventricular global systolic function is normal. Right Atrium: The right atrial cavity size is normal. Aortic Valve: The aortic valve is trileaflet. The aortic valve leaflets are mildly thickened. There is no evidence of aortic regurgitation. There is no evidence of aortic stenosis. Mitral Valve: The mitral valve leaflets are mildly thickened. There is a trace of mitral regurgitation. Tricuspid Valve: The tricuspid valve leaflets are normal. There is no evidence of tricuspid valve regurgitation. Pulmonic Valve: The pulmonic valve appears normal. There is a trace pulmonic regurgitation. There is no pulmonic stenosis. Pericardium: There is no significant pericardial effusion. A pericardial fat pad is visualized. Aorta: There is no dilatation of the ascending aorta. There is no dilatation of the aortic arch. There is no dilation of the aortic root. Pulmonary Artery: The main pulmonary artery is not well visualized. Venous: The venous system is not well visualized. Conclusions There is normal left ventricular systolic function. The estimated ejection fraction is 55-60%. Global left ventricular wall motion and contractility are within normal limits. Mild concentric left ventricular hypertrophy is observed. Normal cardiac chamber sizes. Functionally benign heart valves. There is no prior echocardiogram available to compare with at this time. Measurements Name Value Normal Range RVDdMajor (2D) 3.3 cm (2.2 - 4.4) RAd ISD 4CH 4.9 cm (3.4 - 4.9) RA (A4C)W 3.3 cm (2.9 - 4.6) IVSd (2D) 1.2 cm (0.6 - 1) LVPWd (2D) 1.2 cm (0.6 - 1) LVIDd (2D) 3.6 cm (3.6 - 5.4) LVIDs (2D) 2.6 cm - LV FS (2D) 28 % (25 - 45) Aortic Annulus 1.8 cm (1.4 - 2.6) Ao root diameter (2D) 3.1 cm (2.1 - 3.5) Ascending Ao 3.4 cm (2.1 - 3.4) Aortic arch 3.3 cm (1.8 - 3.4) Descending Ao 0.6 cm - LA dimension (AP) 2D 3.8 cm (2.3 - 3.8) LAd ISD 4CH 5.2 cm (2.9 - 5.3) LA ISD 4CH W 3.9 cm (2.5 - 4.5) Name Value Normal Range LA ESV SP 4CH (A/L) 42 ml - LA ESV SP 2CH (A/L) 45 ml - LA ESV BP (A/L) 45 ml - LA ESV BP (A/L) index 18.27 ml/m2 - LA ESV SP 4CH (MOD) 40 ml - LA ESV SP 2CH (MOD) 43 ml - Name Value Normal Range MV E-wave Vmax 0.7 m/sec - MV deceleration time 307 msec - MV A-wave Vmax 0.7 m/sec - MV E:A ratio 0.99 ratio - LV septal e' Vmax 0.08 m/sec - LV lateral e' Vmax 0.09 m/sec - LV E:e' septal ratio 8.75 ratio - LV E:e' lateral ratio 7.78 ratio - Name Value Normal Range AV Vmax 1.4 m/sec - AV VTI 27 cm - AV peak gradient 8.09 mmHg - AV mean gradient 3.47 mmHg - LVOT Vmax 1.1 m/sec - LVOT VTI 17.3 cm - LVOT peak gradient 4.55 mmHg - LVOT mean gradient 1.98 mmHg - Name Value Normal Range PV Vmax 1 m/sec - PV peak gradient 3.79 mmHg -
[2016-11-11] MEDS: Ramipril CAP* 10 MG PO SCH (17:34)
[2016-11-12] MEDS: Heparin VIAL(*) 5000 UNITS/ML VIAL (FIVE THOUSAND) SUBCUT SCH ×3 (05:16→21:13)
[2016-11-12] MEDS: D5W 1/2 NS 1000 ML BAG* 1,000 ML IV SCH ×3 (05:28→21:15)
[2016-11-12 05:29] LABS: Hematocrit 38 % (42-52); Hemoglobin 12.8 g/dl (14.0-18.0); Mean Corpuscular HGB Conc 34 g/dl (31-36); Mean Corpuscular Hemoglobin 33 pg (27-31); Mean Corpuscular Volume 96 fL (80-94); Mean Platelet Volume 8 um3 (7.4-10.4); Red Blood Count 3.93 10^6/ul (4.0-5.4); Red Cell Distribution Width 13 % (10.5-15); White Blood Count 5.9 10^3/ul (3.5-10.8)
[2016-11-12 05:51] LABS: BUN/Creatinine Ratio 10.2 (8-20); Calcium 8.3 mg/dL (8.6-10.3); EGFR African American 59.3 (>60); EGFR Non-African American 46.1 (>60); Potassium 3.5 mmol/L (3.5-5.0)
[2016-11-12] MEDS: Aspirin TAB* 325 MG PO SCH (08:20)
[2016-11-12] MEDS: Metoprolol Succinate XL TAB* 100 MG PO SCH (08:20)
[2016-11-12] MEDS: Insulin LISPRO* 1 UNITS UNIT SUBCUT SCH ×4 (08:20→21:11)
--- NOTE | 2016-11-12 08:38 | PN ---
Progress Note - Progress Note SOAP: Subjective: Pt seen and examined today. Weekend events noted. No nausea, positive flatus, BM. Denies abdo pain. Objective: af vss; lungs clear b/l abdo: soft/ distended/ NT. No erythema hyperactive BS no calf tenderness labs noted Assessment: POD5 R hemicolectomy; afib and transferred to tele Plan: decrease IVF OOB, Incentive spirometer DVT proph advance diet
[2016-11-12] MEDS: Pantoprazole IV* 40 MG IV SCH (10:53)
--- NOTE | 2016-11-12 12:31 | PN ---
Subjective Date of Service: 11/12/16 Interval History: Patient seen and examined at bedside. Mr. Roberson reports passing flatus and having BM and tolerating solid food. He feels he is progressing. He denies fever /chills, dizziness, palpitations, CP, SOB, n/v. No further episodes of afib noted on telemetry. Telemetry: Sinus Rhythm 80s Family History: Unchanged from Admission Social History: Unchanged from Admission Past Medical History: Unchanged from Admission Objective Active Medications: Aspirin (Aspirin Tab*) 325 mg PO DAILY [facility] Last Admin: 11/12/16 08:20 Dose: 325 mg Dextrose (D50w Syringe 50 Ml*) 12.5 gm IV PUSH .FOR FS < 60 - SS PRN PRN Reason: FS < 60 Heparin Sodium (Porcine) (Heparin Vial(*)) 5,000 units SUBCUT Q8HR [facility] Last Admin: 11/12/16 05:16 Dose: 5,000 units Hydralazine HCl (Apresoline Iv*) 5 mg IV SLOW PU Q6H PRN PRN Reason: BLOOD PRESSURE Last Admin: 11/09/16 23:38 Dose: 5 mg Dextrose/Sodium Chloride (D5w 1/2 Ns 1000 Ml Bag*) 1,000 mls @ 50 mls/hr IV PER RATE [facility] Insulin Human Lispro (Humalog*) 0 - 10 units SUBCUT ACHS [facility] PRN Reason: Protocol Last Admin: 11/12/16 08:20 Dose: 1 unit Metoprolol Succinate (Toprol Xl Tab*) 100 mg PO QAM [facility] Last Admin: 11/12/16 08:20 Dose: 100 mg Morphine Sulfate (Morphine Inj (Syringe)*) 2 mg IV Q2H PRN PRN Reason: PAIN Ondansetron HCl (Zofran Inj*) 4 mg IV Q4H PRN PRN Reason: NAUSEA/VOMITING Last Admin: 11/10/16 05:04 Dose: 4 mg Oxycodone/Acetaminophen (Percocet 5/325 Tab*) 1 tab PO Q4H PRN PRN Reason: PAIN Last Admin: 11/10/16 23:56 Dose: 1 tab Pantoprazole Sodium (Protonix Iv*) 40 mg IV Q24H [facility] Last Admin: 11/12/16 10:53 Dose: 40 mg Ramipril (Altace Cap*) 10 mg PO QPM [facility] Last Admin: 11/11/16 17:34 Dose: 10 mg Vital Signs 11/11/16 11/11/16 11/11/16 15:23 16:00 19:28 Temperature 97.3 F 97.8 F Pulse Rate 71 71 Respiratory 17 18 Rate Blood Pressure 138/67 144/62 (mmHg) O2 Sat by Pulse 97 97 97 Oximetry 11/11/16 11/11/16 11/12/16 19:42 23:47 00:00 Temperature 98.0 F Pulse Rate 63 Respiratory 18 16 Rate Blood Pressure 156/69 (mmHg) O2 Sat by Pulse 97 94 94 Oximetry 11/12/16 11/12/16 11/12/16 04:29 08:00 08:12 Temperature 98.8 F Pulse Rate 77 73 Respiratory 20 20 Rate Blood Pressure 152/79 166/75 (mmHg) O2 Sat by Pulse 94 95 Oximetry 11/12/16 12:05 Temperature 98.0 F Pulse Rate 70 Respiratory 16 Rate Blood Pressure 153/74 (mmHg) O2 Sat by Pulse 98 Oximetry Oxygen Devices in Use Now: None Appearance: Male patient, sitting up in bed, in NAD Eyes: PERRLA Ears/Nose/Mouth/Throat: Clear Oropharnyx, Mucous Membranes Moist Respiratory: Symmetrical Chest Expansion and Respiratory Effort, Clear to Auscultation Cardiovascular: NL Sounds; No Murmurs; No JVD, RRR Abdominal: - - protuberant, distended, soft, tender near incision site. BS x 4, buzz intact with no drainage Skin: No Rash or Ulcers Neurological: Alert and Oriented x 3 Lines/Tubes/Other Access: Clean, Dry and Intact Peripheral IV Result Diagrams: 11/12/16 05:13 11/12/16 05:13 Assess/Plan/Problems-Billing Assessment: 81 yo male with PMH of DM type 2, HTN, CKD stage 3 with recent diagnoses of tubulovillous adenoma of the colon who underwent an elective laproscopic colon polypectomy and right hemicolectomy 11/07/16. - Patient Problems (1) Atrial fibrillation Code(s): I48.91 - UNSPECIFIED ATRIAL FIBRILLATION Comment: Patient noted to be in atrial fibrillation 11/10 but has spontaneously converted and been in SR on telemetry. Diltiazem stopped, continue metoprolol. Can increase metoprolol if necessary. No previously known history of afib, potentially a transient episode due to hypovolemia. Will require anticoagulation (if okay with surgery) if patient noted to have recurrent afib. If no further episodes, patient can follow as an outpatient with PCP and have outpatient cardiology referral. Echo shows EF 55-60% with normal LV function and no wall motion abnormalities. (2) S/P right hemicolectomy Code(s): Z90.49 - ACQUIRED ABSENCE OF OTHER SPECIFIED PARTS OF DIGESTIVE TRACT Comment: POD #5 Disposition per surgery Intraoperative EBL 500 ml. HH stable. Patient passing flatus, BM. Tolerating solid foods. Pain management, well controlled with morphine. Encourage IS and ambulation (3) Diabetes Code(s): E11.9 - TYPE 2 DIABETES MELLITUS WITHOUT COMPLICATIONS Comment: Controlled. Continue FSBG ACHS with lispro SS (4) HTN (hypertension) Code(s): I10 - ESSENTIAL (PRIMARY) HYPERTENSION Comment: SBP 120s-150s. Continue metoprolol and ramipril with hold parameters. Hold HCTZ, as patient appears to be somewhat dry. Continue hydralazine prn for SBP > 170 (5) Chronic kidney disease (CKD) Code(s): N18.9 - CHRONIC KIDNEY DISEASE, UNSPECIFIED Comment: Stage 3. Creatinine improved with fluids. Continue IVF, hold HCTZ today. Renally dose medications. Continue to monitor. (6) DVT prophylaxis Code(s): PLW8370 - Comment: SQ heparin (7) Full code status Code(s): Z78.9 - OTHER SPECIFIED HEALTH STATUS Status and Disposition: Inpatient. Dispo per surgery. Hospital Medicine co-medical management.
[2016-11-12] MEDS: Ramipril CAP* 10 MG PO SCH (17:58)
[2016-11-13] MEDS: Heparin VIAL(*) 5000 UNITS/ML VIAL (FIVE THOUSAND) SUBCUT SCH (05:40)
[2016-11-13] MEDS: Metoprolol Succinate XL TAB* 100 MG PO SCH (08:39)
[2016-11-13] MEDS: Aspirin TAB* 325 MG PO SCH (08:40)
[2016-11-13] MEDS: Pantoprazole IV* 40 MG IV SCH (08:41)
[2016-11-13] MEDS: Insulin LISPRO* 1 UNITS UNIT SUBCUT SCH ×2 (08:42→12:35)
[2016-11-13] MEDS ORDERED: Insulin GLARGINE(*) 1 UNITS UNIT SUBCUT SCH (09:00)
--- NOTE | 2016-11-13 09:36 | PN ---
Subjective Date of Service: 11/13/16 Interval History: Patient seen and examined at bedside. He is sitting up in bed eating breakfast. He reports that his incisional pain is improving. Denies CP, SOB, abd pain, n/ v. Patient advised to f/u with PCP re: post op afib; he may benefit from an outpatient cardiology referral. Family History: Unchanged from Admission Social History: Unchanged from Admission Past Medical History: Unchanged from Admission Objective Active Medications: Aspirin (Aspirin Tab*) 325 mg PO DAILY [facility] Last Admin: 11/13/16 08:40 Dose: 325 mg Dextrose (D50w Syringe 50 Ml*) 12.5 gm IV PUSH .FOR FS < 60 - SS PRN PRN Reason: FS < 60 Heparin Sodium (Porcine) (Heparin Vial(*)) 5,000 units SUBCUT Q8HR [facility] Last Admin: 11/13/16 05:40 Dose: 5,000 units Hydralazine HCl (Apresoline Iv*) 5 mg IV SLOW PU Q6H PRN PRN Reason: BLOOD PRESSURE Last Admin: 11/09/16 23:38 Dose: 5 mg Dextrose/Sodium Chloride (D5w 1/2 Ns 1000 Ml Bag*) 1,000 mls @ 50 mls/hr IV PER RATE [facility] Last Admin: 11/12/16 21:15 Dose: 50 mls/hr Insulin Glargine (Lantus(*)) [facility] Last Admin: 11/13/16 08:41 Dose: 20 unit Insulin Human Lispro (Humalog*) 0 - 10 units SUBCUT ACHS [facility] PRN Reason: Protocol Last Admin: 11/13/16 08:42 Dose: 1 unit Metoprolol Succinate (Toprol Xl Tab*) 100 mg PO QAM [facility] Last Admin: 11/13/16 08:39 Dose: 100 mg Morphine Sulfate (Morphine Inj (Syringe)*) 2 mg IV Q2H PRN PRN Reason: PAIN Ondansetron HCl (Zofran Inj*) 4 mg IV Q4H PRN PRN Reason: NAUSEA/VOMITING Last Admin: 11/10/16 05:04 Dose: 4 mg Oxycodone/Acetaminophen (Percocet 5/325 Tab*) 1 tab PO Q4H PRN PRN Reason: PAIN Last Admin: 11/10/16 23:56 Dose: 1 tab Pantoprazole Sodium (Protonix Iv*) 40 mg IV Q24H [facility] Last Admin: 11/13/16 08:41 Dose: 40 mg Ramipril (Altace Cap*) 10 mg PO QPM [facility] Last Admin: 11/12/16 17:58 Dose: 10 mg Vital Signs 11/12/16 11/12/16 11/12/16 12:05 16:27 16:28 Temperature 98.0 F 96.5 F 96.5 F Pulse Rate 70 74 74 Respiratory 16 20 Rate Blood Pressure 153/74 148/75 196/76 (mmHg) O2 Sat by Pulse 98 98 98 Oximetry 11/12/16 11/12/16 11/12/16 17:19 20:00 23:09 Temperature 98.8 F 98.6 F Pulse Rate 80 78 Respiratory 18 16 16 Rate Blood Pressure 133/68 138/61 (mmHg) O2 Sat by Pulse 96 96 Oximetry 11/13/16 11/13/16 03:58 04:20 Temperature 98.2 F Pulse Rate 73 Respiratory 16 Rate Blood Pressure 155/66 (mmHg) O2 Sat by Pulse 96 93 Oximetry Oxygen Devices in Use Now: None Appearance: Male patient, sitting up in bed, in NAD Eyes: PERRLA Ears/Nose/Mouth/Throat: Clear Oropharnyx, Mucous Membranes Moist Neck: NL Appearance and Movements; NL JVP Respiratory: Symmetrical Chest Expansion and Respiratory Effort, Clear to Auscultation Cardiovascular: NL Sounds; No Murmurs; No JVD, RRR Abdominal: - - protuberant, soft, midly distended, incision c/d/i with buzz Extremities: No Edema, No Clubbing, Cyanosis Skin: No Rash or Ulcers Neurological: Alert and Oriented x 3 Lines/Tubes/Other Access: Clean, Dry and Intact Peripheral IV Nutrition: Taking PO's Result Diagrams: 11/12/16 05:13 11/12/16 05:13 Assess/Plan/Problems-Billing Assessment: 81 yo male with PMH of DM type 2, HTN, CKD stage 3 with recent diagnoses of tubulovillous adenoma of the colon who underwent an elective laproscopic colon polypectomy and right hemicolectomy 11/07/16. - Patient Problems (1) Atrial fibrillation Code(s): I48.91 - UNSPECIFIED ATRIAL FIBRILLATION Comment: No further episodes. Recommend outpatient f/u with PCP, who can refer patient to cardiology, if necessary. Continue metoprolol. No previously known history of afib, potentially a transient episode due to hypovolemia post-operatively. Echo shows EF 55-60% with normal LV function and no wall motion abnormalities. (2) S/P right hemicolectomy Code(s): Z90.49 - ACQUIRED ABSENCE OF OTHER SPECIFIED PARTS OF DIGESTIVE TRACT Comment: POD #6 Disposition per surgery Intraoperative EBL 500 ml. HH stable. Patient passing flatus, BM. Tolerating solid foods. Pain management, well controlled. Encourage IS and ambulation (3) Diabetes Code(s): E11.9 - TYPE 2 DIABETES MELLITUS WITHOUT COMPLICATIONS Comment: Controlled. Continue FSBG ACHS with lispro SS (4) HTN (hypertension) Code(s): I10 - ESSENTIAL (PRIMARY) HYPERTENSION Comment: SBP 120s-150s. Continue metoprolol and ramipril with hold parameters. May resume HCTZ as outpatient. (5) Chronic kidney disease (CKD) Code(s): N18.9 - CHRONIC KIDNEY DISEASE, UNSPECIFIED Comment: Stage 3. Creatinine at baseline. Avoid nephrotoxic medications. (6) DVT prophylaxis Code(s): DRG2608 - Comment: SQ heparin (7) Full code status Code(s): Z78.9 - OTHER SPECIFIED HEALTH STATUS Status and Disposition: Inpatient. Dispo per surgery. Hospital Medicine co-medical management.
[2016-11-13 10:37] VITALS: BP 171/71
--- NOTE | 2016-11-13 11:26 | DS ---
DISCHARGE SUMMARY: DATE OF ADMISSION: 11/07/16 DATE OF DISCHARGE: 11/13/16 HISTORY: Mr. 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 The patient presented the same day of surgery for a laparoscopic-assisted colon polypectomy versus partial colectomy. He underwent the open partial colectomy taking out the right colon. Please see operative report for full details. He was extubated and transferred to the PACU and on to the Short Stay Surgical Unit with Mack catheter in place. He required oxygen via nasal cannula overnight and his pain was controlled with a SYSTEMS TRAINER. On postoperative day 1, the patient had been up and ambulating, still without any GI function. He remained on IV fluids. The Mack catheter was removed. By postoperative day 2, the patient was advanced from ice chips to a clear diet. The hospitalist service was called early on for assistance of care with Mr. Roberson for his diabetes and for glucose control. He remained on insulin sliding scale. By postoperative day 3, the patient's SYSTEMS TRAINER was discontinued and he was changed to IV and oral narcotics. The patient had advanced into atrial fibrillation for a short period of time and was transferred to telemetry on postoperative day 4 where he quickly went out of arrhythmia and back to a normal sinus. His GI function was improving and the patient had a bowel movement. His diet was advanced. The patient underwent an echocardiogram, results were within normal limits. The patient was not followed by Cardiology as he did not show any signs of going back into atrial fibrillation. He was not started on anticoagulation, but was started on an aspirin. By postoperative day 6, the patient was tolerating solid diet, was ambulating, remaining in sinus rhythm. He was transferred in the overnight off telemetry and was for planned discharge home. PHYSICAL EXAMINATION: Physical exam was performed on day of discharge. He had been afebrile. Vital signs stable. His urine output had improved somewhat, but he remained positive via fluid balance. He is alert and oriented x3, in no apparent distress. HEENT: Normocephalic, atraumatic. Sclerae are anicteric. Mucous membranes are moist. Lungs: Clear to auscultation bilaterally. Abdomen : Soft, obese, and nontender. Healing midline incision with buzz intact and no erythema. Extremities: Within normal limits. No calf tenderness and no edema. PLAN: Plan is for discharge home. Follow up on of this week for removal of buzz. Pathology was reviewed with the patient and showed no evidence of invasive cancer. He will follow up with his primary care physician and I would like him to do that within 1 to 2 weeks and see if he needs any additional cardiac workup. I will discharge the patient home and he can continue with aspirin until he follows up with his primary care physician. CC: Abhishek Dangelo MD; [facility]* [id number]/[facility] #: [id number] MTDD
== END 2016-11-13 13:35 | disposition home or self-care (01) | DRG 331 ==
LOC: AA 05:43 → SSU 12:40 → MEDTELE 11-11 10:25 → MED 11-12 16:11
PROVIDERS: ADMIT Surgery; ATTEND Surgery
PROC: 0DJD4ZZ Inspection of Lower Intestinal Tract, Percutaneous Endoscopic Approach (ICD-10-PCS; 2016-11-07)
PROC: 0DTF0ZZ Resection of Right Large Intestine, Open Approach (ICD-10-PCS; principal; 2016-11-07 07:45)
DX: D12.2 Benign neoplasm of ascending colon (principal); E11.22 Type 2 diabetes mellitus with diabetic chronic kidney disease; N18.3 Chronic kidney disease, stage 3 (moderate); E87.8 Other disorders of electrolyte and fluid balance, not elsewhere classified; I48.91 Unspecified atrial fibrillation; E86.1 Hypovolemia; I12.9 Hypertensive chronic kidney disease with stage 1 through stage 4 chronic kidney disease, or unspecified chronic kidney disease; G25.2 Other specified forms of tremor; E66.9 Obesity, unspecified; K66.0 Peritoneal adhesions (postprocedural) (postinfection); K57.90 Diverticulosis of intestine, part unspecified, without perforation or abscess without bleeding; R14.0 Abdominal distension (gaseous); K21.9 Gastro-esophageal reflux disease without esophagitis; Z72.89 Other problems related to lifestyle; Z53.31 Laparoscopic surgical procedure converted to open procedure; Z80.52 Family history of malignant neoplasm of bladder; Z82.3 Family history of stroke; Z68.33 Body mass index [BMI] 33.0-33.9, adult; Z79.82 Long term (current) use of aspirin; Z79.4 Long term (current) use of insulin
CPT/HCPCS: 36415; 80048; 80053; 83735; 84100; 85025; 85027; 85610; 85730; 88309; 93005; 93306; 94760; A9270-GY; J0360; J1335; J1644; J1940; J2405; J2704; J3010

== ENCOUNTER 2021-09-05 14:26 | Inpatient (IN) ==
[2021-09-05] MEDS ORDERED: Lactated Ringers 1000 ml BAG 1,000 ML IV ONE ×2 (17:22→18:31)
[2021-09-05 18:08] LABS: ABS Lymphocytes 0.5 10^3/ul (1.0-4.8); ABS Monocytes 0.4 10^3/ul (0-0.8); ABS Neutrophils 12.6 10^3/ul (1.5-7.7); Hematocrit 45 % (42-52); Lymphocyte % 3.7 %; Mean Corpuscular HGB Conc 34 g/dL (31-36); Mean Corpuscular Hemoglobin 32 pg (27-31); Mean Corpuscular Volume 95 fL (80-94); Mean Platelet Volume 9.2 fL (7.4-10.4); Platelet Count 191 10^3/uL (150-450); Red Blood Count 4.73 10^6 /uL (4.18-5.48); Red Cell Distribution Width 14 % (10-15); White Blood Count 13.5 10^3/uL (3.5-10.8)
[2021-09-05 18:25] LABS: Albumin 3.8 g/dL (3.2-5.2); C Reactive Protein 378.03 mg/L (<8.01); Calcium 9.1 mg/dL (8.6-10.3); Globulin 3.8 g/dL (2-4); Potassium 4.2 mmol/L (3.5-5.0); Total Bilirubin 5.1 mg/dL (0.2-1.0); Total Protein 7.6 g/dL (6.4-8.9); eGFR CKD-EPI 15.6 (>60)
[2021-09-05 18:26] LABS: Troponin I 0.02 ng/mL (<0.03)
[2021-09-05] MEDS ORDERED: Piperacillin/Tazobac ADVAN 3.375 GM in NS 0.9% 100 ml BAG 100 ML IVPB ONE (18:31)
[2021-09-05] MEDS ORDERED: Ondansetron 4 mg VIAL 2 MG/ML 2 ml VIAL IV PRN (21:17)
[2021-09-05] MEDS: NS 0.9% 1000 ml BAG 1,000 ML IV SCH (21:46)
[2021-09-05] MEDS ORDERED: Zosyn per Pharmacy NOTE FOLLOW UP SCH (22:00)
[2021-09-05] MEDS ORDERED: NS 0.9% 1000 ml BAG 1,000 ML IV ONE (22:30)
[2021-09-05] MEDS ORDERED: ZOSYN 3.375 GM Q8H per EXTENDED INFUSION IV ONE (22:30)
[2021-09-05] MEDS ORDERED: Dextrose 50% Syringe 50 ml 25 GM/50 ML SYRINGE IV PUSH PRN (22:40)
[2021-09-05 22:55] LABS: Urine Appearance Cloudy; Urine Bilirubin Negative (Negative); Urine Blood 1+ (Negative); Urine Color Amber; Urine Glucose Negative (Negative); Urine Ketones Negative (Negative); Urine Nitrite Negative (Negative); Urine Protein 2+(100 mg/dL) (Negative); Urine Specific Gravity 1.012 (1.002-1.030); Urine Urobilinogen Positive (Negative)
[2021-09-05 22:57] LABS: Urine Bacteria 1+ (Absent); Urine Red Blood Cell Trace(0-2/hpf) (Absent); Urine Squamous Epithelial Cell Present (Absent); Urine White Blood Cell Trace(0-5/hpf) (Absent)
[2021-09-06] MEDS: NS 0.9% 1000 ml BAG 1,000 ML IV SCH (05:30)
[2021-09-06 07:26] LABS: ABS Lymphocytes 0.4 10^3/ul (1.0-4.8); ABS Monocytes 0.5 10^3/ul (0-0.8); ABS Neutrophils 10.2 10^3/ul (1.5-7.7); Hematocrit 39 % (42-52); Hemoglobin 13.3 g/dL (14.0-18.0); Lymphocyte % 3.4 %; Mean Corpuscular HGB Conc 34 g/dL (31-36); Mean Corpuscular Hemoglobin 32 pg (27-31); Mean Corpuscular Volume 95 fL (80-94); Mean Platelet Volume 8.6 fL (7.4-10.4); Platelet Count 152 10^3/uL (150-450); Red Blood Count 4.17 10^6 /uL (4.18-5.48); Red Cell Distribution Width 14 % (10-15)
[2021-09-06 07:50] LABS: Calcium 8.3 mg/dL (8.6-10.3); Potassium 4.5 mmol/L (3.5-5.0); Total Bilirubin 2.7 mg/dL (0.2-1.0); eGFR CKD-EPI 18.5 (>60)
[2021-09-06] MEDS: ZOSYN 3.375 GM Q12H per EXTENDED INFUSION IV SCH ×2 (10:33→23:18)
[2021-09-06] MEDS ORDERED: fentaNYL 100 mcg/2 ml 50 MCG/ML VIAL ONE (15:14)
[2021-09-06] MEDS ORDERED: NS 0.9% 1000 ml BAG 1,000 ML IV SCH (17:32)
[2021-09-06] MEDS: Heparin 5000 UNITS/ML 1 mL VIAL SUBCUT SCH (23:18)
[2021-09-07] MEDS: Heparin 5000 UNITS/ML 1 mL VIAL SUBCUT SCH ×3 (06:08→21:54)
[2021-09-07 06:32] LABS: ABS Lymphocytes 0.5 10^3/ul (1.0-4.8); ABS Monocytes 0.3 10^3/ul (0-0.8); ABS Neutrophils 6.5 10^3/ul (1.5-7.7); Eosinophil % 0.2 %; Hematocrit 40 % (42-52); Hemoglobin 13.6 g/dL (14.0-18.0); Lymphocyte % 7.3 %; Mean Corpuscular HGB Conc 34 g/dL (31-36); Mean Corpuscular Hemoglobin 32 pg (27-31); Mean Corpuscular Volume 95 fL (80-94); Mean Platelet Volume 8.7 fL (7.4-10.4); Platelet Count 158 10^3/uL (150-450); Red Blood Count 4.23 10^6 /uL (4.18-5.48); Red Cell Distribution Width 14 % (10-15); White Blood Count 7.4 10^3/uL (3.5-10.8)
[2021-09-07 06:48] LABS: Albumin 2.9 g/dL (3.2-5.2); Albumin/Globulin Ratio 0.9 (1-3); Calcium 8.2 mg/dL (8.6-10.3); Globulin 3.3 g/dL (2-4); Magnesium 1.9 mg/dL (1.9-2.7); Total Bilirubin 1.9 mg/dL (0.2-1.0); Total Protein 6.2 g/dL (6.4-8.9); eGFR CKD-EPI 26.1 (>60)
[2021-09-07] MEDS: ZOSYN 3.375 GM Q12H per EXTENDED INFUSION IV SCH (09:03)
[2021-09-07] MEDS: ZOSYN 3.375 GM Q8H per EXTENDED INFUSION IV SCH (16:14)
[2021-09-08] MEDS: ZOSYN 3.375 GM Q8H per EXTENDED INFUSION IV SCH ×3 (01:01→16:48)
[2021-09-08] MEDS: Heparin 5000 UNITS/ML 1 mL VIAL SUBCUT SCH ×3 (06:13→21:00)
[2021-09-08 06:17] LABS: ABS Eosinophils 0.1 10^3/ul (0-0.6); ABS Lymphocytes 0.7 10^3/ul (1.0-4.8); ABS Monocytes 0.3 10^3/ul (0-0.8); ABS Neutrophils 4.6 10^3/ul (1.5-7.7); Eosinophil % 0.9 %; Hematocrit 41 % (42-52); Hemoglobin 13.8 g/dL (14.0-18.0); Lymphocyte % 12.6 %; Mean Corpuscular HGB Conc 34 g/dL (31-36); Mean Corpuscular Hemoglobin 32 pg (27-31); Mean Corpuscular Volume 95 fL (80-94); Mean Platelet Volume 8.1 fL (7.4-10.4); Platelet Count 166 10^3/uL (150-450); Red Blood Count 4.28 10^6 /uL (4.18-5.48); Red Cell Distribution Width 14 % (10-15); White Blood Count 5.7 10^3/uL (3.5-10.8)
[2021-09-08 06:38] LABS: Albumin/Globulin Ratio 0.9 (1-3); Calcium 8.3 mg/dL (8.6-10.3); Globulin 3.4 g/dL (2-4); Potassium 3.9 mmol/L (3.5-5.0); Total Bilirubin 1.5 mg/dL (0.2-1.0); Total Protein 6.4 g/dL (6.4-8.9); eGFR CKD-EPI 28.6 (>60)
[2021-09-09] MEDS: ZOSYN 3.375 GM Q8H per EXTENDED INFUSION IV SCH ×2 (00:35→08:50)
[2021-09-09] MEDS: Heparin 5000 UNITS/ML 1 mL VIAL SUBCUT SCH ×3 (06:10→22:05)
[2021-09-09 06:49] LABS: Albumin/Globulin Ratio 0.9 (1-3); Calcium 8.2 mg/dL (8.6-10.3); Globulin 3.4 g/dL (2-4); Potassium 3.7 mmol/L (3.5-5.0); Total Bilirubin 1.3 mg/dL (0.2-1.0); Total Protein 6.4 g/dL (6.4-8.9); eGFR CKD-EPI 36.2 (>60)
[2021-09-09] MEDS: ZOSYN 3.375 GM Q6H - Intermittant 30 min Infusion IV SCH ×2 (14:45→21:55)
[2021-09-10] MEDS: ZOSYN 3.375 GM Q6H - Intermittant 30 min Infusion IV SCH ×2 (03:31→08:41)
[2021-09-10] MEDS: Heparin 5000 UNITS/ML 1 mL VIAL SUBCUT SCH (06:29)
[2021-09-10 07:55] VITALS: BP 140/79
[2021-09-10] MEDS ORDERED: Enoxaparin 40 MG/0.4 ML SYR SUBCUT SCH (08:00)
== END 2021-09-10 11:30 | disposition home or self-care (01) | DRG 872 ==
LOC: ED 14:26 → EDHOLD 21:17 → SUATTDRO 21:17 → EDHOLD 09-06 13:03 → SSU 09-06 13:46
PROVIDERS: ADMIT Student in an Organized Health Care Education/Training Program; ATTEND Hospitalist